=== PATIENT | female | born 1990 ===

== ENCOUNTER 2018-09-20 19:12 | Emergency (ER) | payer MEDICAID ==
[2018-09-20 19:41] VITALS: BP 134/79
--- NOTE | 2018-09-20 21:17 | ER Document Report ---
ED Medical Screen (RME) - General Chief Complaint: Pain All Over Stated Complaint: JOINT SWELLING Time Seen by Provider: 09/20/18 21:15 Mode of Arrival: Ambulatory Information source: Patient Notes: 27-year-old female presented to ED for complaint of pain to all of her joints with swelling off and on. There is no swelling at this time she states. She states she does still have pain in her all of her joints from the previous swelling. She states that 2 weeks ago her friend said she had a seizure but she does not have a history of seizures. She states she just remembers waking up. She states she has been having a headache and dizziness and not feeling right since then. She does have a history of COPD bronchitis and anxiety. She states she smokes a pack a day does not drink or do any drugs and works at [employer] and lives with her mother. She has had a history of an appendectomy and tubes got burned and tied. Lungs are clear to auscultation at this time. I have greeted and performed a rapid initial assessment of this patient. A comprehensive ED assessment and evaluation of the patient, analysis of test results and completion of medical decision making process will be conducted by an additional ED providers. TRAVEL OUTSIDE OF THE [place] IN LAST 30 DAYS: No - Related Data Allergies/Adverse Reactions: No Known Allergies Allergy (Unverified 09/20/18 19:15) Physical Exam - Vital signs Vitals: Temp Pulse Resp BP Pulse Ox 98.8 F 97 16 134/79 H 100 09/20/18 19:40 09/20/18 19:40 09/20/18 19:40 09/20/18 19:40 09/20/18 19:40 Course - Vital Signs Vital signs: Temp Pulse Resp BP Pulse Ox 98.8 F 97 16 134/79 H 100 09/20/18 19:40 09/20/18 19:40 09/20/18 19:40 09/20/18 19:40 09/20/18 19:40
== END 2018-09-21 | disposition left against medical advice (07) ==
LOC: ER 19:12
DX: M25.50 Pain in unspecified joint (principal); M25.40 Effusion, unspecified joint; R51 Headache; R42 Dizziness and giddiness; J44.9 Chronic obstructive pulmonary disease, unspecified; Z53.20 Procedure and treatment not carried out because of patient's decision for unspecified reasons
CPT/HCPCS: 99281